=== PATIENT | male | born 1990 | race Two or more races ===

== ENCOUNTER 2016-12-02 21:20 | Emergency (ER) | payer MEDICAID ==
[~2016-12-02] VITALS: Ht 175.3 cm; Wt 88.7 kg
[2016-12-02 21:54] LABS: Basophils # (auto) 0.1 uL; Basophils % (auto) 0.7 % (0.0-2.0); Eosinophils # (auto) 0.1 uL; Eosinophils % (auto) 1.2 % (0.0-7.0); Hematocrit 48.4 % (41.0-53.0); Hemoglobin 16.3 g/dL (13.5-17.5); Lymphocytes # (auto) 2.7 uL; Lymphocytes % (auto) 27.1 % (10.0-50.0); Mean Corpuscular Hemoglobin 30.3 pg (28.0-32.0); Mean Corpuscular Hgb Conc. 33.6 g/dL (32.0-36.0); Mean Platelet Volume 7.7 fL (7.4-10.4); Monocytes # (auto) 0.9 uL; Monocytes % (auto) 8.7 % (0.0-12.0); Neutrophils # (auto) 6.3 uL; Neutrophils % (auto) 62.3 % (37.0-80.0); Platelet Count (auto) 337 10^3/uL (140-450); Red Cell Distribution Width 13.2 % (11.6-16.0)
[2016-12-02 22:03] LABS: INR 0.93 (0.9-1.15); Partial Thromboplastin Time 27.5 sec (22.64-33.71)
[2016-12-02 22:11] LABS: Albumin 3.8 g/dL (3.4-5.0); BUN/Creatinine Ratio 13.3; Bilirubin, Total 0.2 mg/dL (0.2-1.0); Calcium 8.8 mg/dL (8.5-10.1); Potassium 3.8 mmol/L (3.5-5.1)
[2016-12-02 22:12] LABS: Urine Bilirubin Negative (Negative); Urine Blood Negative /uL (Negative); Urine Color Yellow (Yellow); Urine Glucose Normal (Normal); Urine Ketone Negative (Negative); Urine Nitrite Negative (Negative); Urine RBC <1 /hpf (0 - 3); Urine Urobilinogen Normal (Negative); Urine pH 5.5 (5.0-8.0)
[2016-12-03 01:08] VITALS: BP 105/42
[2016-12-03] MEDS ORDERED: HYDROcodone-ACET 5/325MG TAB PO ONE (01:30)
== END 2016-12-03 02:12 | disposition home or self-care (01) ==
LOC: ER 21:27
DX: K58.9 Irritable bowel syndrome, unspecified (principal)
CPT/HCPCS: 36415; 74176; 80053; 81001; 82150; 83690; 85025; 85610; 85730

== ENCOUNTER 2017-03-02 19:35 | Emergency (ER) | payer MEDICAID ==
[~2017-03-02] VITALS: Ht 172.7 cm; Wt 90.7 kg
[2017-03-02 20:01] VITALS: BP 146/83
[2017-03-02] MEDS ORDERED: IBUPROFEN 800 MG TAB PO ONE (23:45)
== END 2017-03-02 23:35 | disposition home or self-care (01) ==
LOC: ER 19:41
DX: L02.413 Cutaneous abscess of right upper limb (principal)
CPT/HCPCS: 10060; 87205

== ENCOUNTER 2025-03-26 21:55 | Emergency (ER) | payer BC, MEDICAID ==
[~2025-03-26] VITALS: Ht 175.3 cm; Wt 90.0 kg
--- NOTE | 2025-03-26 22:39 | DVH ---
CLINICAL INDICATION: FALL INJURY TECHNIQUE: 4 views XY L TIB FIB XRAY Comparison: None FINDINGS/IMPRESSION: : No acute fracture. The knee and ankle joints are congruent. Anterolateral soft tissue laceration and hematoma with small radiodense foreign bodies at the level o f the proximal/mid lower leg.
[2025-03-26] MEDS ORDERED: CEPH250C PO (23:49)
[2025-03-26] MEDS ORDERED: HYDR-4902 PO (23:49)
[2025-03-26] MEDS ORDERED: IBUP-1455 PO (23:49)
--- NOTE | 2025-03-26 23:50 | ED.PDOC ---
Musculoskeletal HPI Comments This patient is a 35-year-old male who arrives to the ED today for evaluation of left bowles injuries sustained approximately 1 hour prior to arrival. Patient states he was working in his yd when he stepped into a hole and cut his bowles. Patient states he is unable to bear weight on the leg. Patient denies any fever nausea or vomiting. Patient's tetanus is up-to-date. Chief Complaint: Lower Extremity Time Seen by MD: 23:24 Reviewed Notes: Nurses Notes Allergies: Coded Allergies: NO KNOWN ALLERGIES (Unverified , 12/02/16) Information Source: Patient, Friend Mode of Arrival: Ambulatory Location: Left Extremity Location: Other (Bowles) Timing: Minutes Prehospital treatment: None Severity: Moderate Able to Move Extremity: Yes Bear Weight: Limited Pain: Moderate Hand Dominance: Right Mechanism: No Trauma Circumstances: Fall Onset of Symptoms: After Trauma Symptoms: Swelling, Pain DVT Risk Factors: NONE Past Medical History PAST MEDICAL HISTORY: Denies Surgical History: Denies all surgeries Family History Family History: Unobtainable Social History Smoker: Non-Smoker Alcohol: Denies ETOH Use Drugs: Denies Drug Use Lives In: Home Constitutional: denies: chills, diaphoresis, fatigue, fever, malaise, sweats, weakness, others EENTM: denies: blurred vision, double vision, ear bleeding, ear discharge, ear drainage, ear pain, ear ringing, eye pain, eye redness, hearing loss, mouth pain, mouth swelling, nasal discharge, nose bleeding, nose congestion, nose pain, photophobia, tearing, throat pain, throat swelling, voice changes, others Respiratory: denies: cough, hemoptysis, orthopnea, SOB at rest, shortness of breath, SOB with excertion, stridor, wheezing, others Cardiovascular: denies: chest pain, dizzy spells, diaphoresis, Dyspnea on exertion, edema, irregular heart beat, left arm pain, lightheadedness, palpitations, PND, syncope, others Gastrointestinal: denies: abdomen distended, abdominal pain, blood streaked bowels, constipated, diarrhea, dysphagia, difficulty swallowing, hematemesis, melena, nausea, poor appetite, poor fluid intake, rectal bleeding, rectal pain, vomiting, others Genitourinary: denies: burning, dysuria, flank pain, frequency, hematuria, incontinence, penile discharge, penile sore, pain, testicle pain, testicle swelling, urgency, others Neurological: denies: dizziness, fainting, headache, left sided numbness, left sided weakness, numbness, paresthesia, pre-existing deficit, right sided numbness, right sided weakness, seizure, speech problems, tingling, tremors, weakness, others Musculoskeletal: reports: others (Left bowles pain with laceration); denies: back pain, gout, joint pain, joint swelling, muscle pain, muscle stiffness, neck pain Integumetry: reports: laceration (Left bowles); denies: bruises, change in color, change in hair/nails, dryness, lesions, lumps, rash, wounds, others Allergic/Immunocompromised: denies: Difficulty Healing, Frequent Infections, Hives, Itching, others Hematologic/Lymphatic: denies: anemia, blood clots, easy bleeding, easy bruising, swollen glands, others Endocrine: denies: excessive hunger, excessive sweating, excessive thirst, excessive urination, flushing, intolerance to cold, intolerance to heat, unexplained weight gain, unexplained weight loss, others Psychiatric: denies: anxiety, bipolar disorder, depression, hopeless, panic disorder, schizophrenia, sleepless, suicidal, others Physical Exam General Appearance: Moderate Distress (Due to left bowles pain concerns.), Normal HEENT: Normal ENT Inspection, Pharynx Normal, TMs Normal Neck: Full Range of Motion, Non-Tender, Normal, Normal Inspection Respiratory: Chest Non-Tender, Lungs Clear, No Accessory Muscle Use, No Respiratory Distress, Normal Breath Sounds Cardiovascular: No Edema, No JVD, No Murmur, No Gallop, Normal Peripheral Pulses, Regular Rate/Rhythm Breast Exam: Deferred Gastrointestinal: No Organomegaly, Non Tender, No Pulsatile Mass, Normal Bowel Sounds, Soft Genitalia: Deferred Pelvic: Deferred Rectal: Deferred Extremities: Other (Central left bowles tenderness to palpation throughout with mild edema. Patient displays a 6 cm v-shaped laceration to the injury site. No crepitus noted. No tendon involvement.) Neurologic: Alert, No Motor Deficits, Normal Affect, Normal Mood, No Sensory Deficits Cerebellar Function: Normal Reflexes: Normal Skin: Dry, Normal Color, Warm Lymphatic: No Adenopathy Was a procedure done? Was a procedure done?: Yes Sedation Sedation?: No Other Procedure Notes 8 cc of 1% lidocaine was utilized for local anesthesia. Sterile field was placed. Copious irrigation performed. Nine kinsey were placed to close the patient's wound. Minimal blood loss. Patient tolerated procedure well. Clean dressing applied. Differential Diagnosis EXT Differential Diagnosis: Fracture, Sprain, Laceration, Contusion, Strain X-Ray, Labs, Meds, VS Vital Signs Date Time Temp Pulse Resp B/P (MAP) Pulse Ox O2 Delivery O2 Flow Rate FiO2 03/26/25 21:56 98.6 109 16 126/93 97 98.6 X-Ray, Labs, Meds, VS Comment All studies performed the ED were reviewed by me personally. Imaging studies of the left bowles were unremarkable for any fracture. Patient tolerated procedure well. Advised patient utilize antibiotics as directed as well as pain medication as needed. Patient should return to ED or primary care provider in 10 days for re-evaluation and probable staple removal. Time of 1ST Reevaluation: 23:47 Reevaluation 1ST: Improved Consultation: PCP Patient Education/Counseling: Diagnosis, Treatment Family Education/Counseling: Diagnosis, Treatment Sepsis Recent Procedure: No On Antibiotic Therapy: No Respiratory Rate >20: No Heart Rate >90: No Temp<36 C (96.8 F) or >38.3 C: No SBP <90 or MAP <65 mmHG: No New Acute Mental Status Change: No Is the patient on CPAP, BIPAP,: No IV fluid given: No Departure 1 Departure Time of Disposition: 23:48 Impression: Primary Impression: Contusion of leg Additional Impression: Leg laceration Disposition: 01 HOME / SELF CARE / HOMELESS Condition: Stable Additional Instructions: Advised patient utilize antibiotics as directed until completion as well as pain medication as needed. Patient should return to primary care provider for ED in 10 days for re-evaluation and probable staple removal. e-Prescriptions Hydrocodone-Acetaminophen (Hydrocodone Bitartrate/AC 5-325 mg) 1 Tab Tab 1 TAB PO Q6HP PRN, #12 TAB Prov: BETTIE CARABALLO PAC 03/26/25 Ibuprofen Micronized (Ibuprofen) 800 Mg Tab 800 MG PO Q8HP PRN, #20 TAB Prov: BETTIE CARABALLO PAC 03/26/25 Cephalexin (KEFLEX CAPSULE) 250 Mg Cp 1 CAP PO QID for 7 Days, #28 CAP Prov: BETTIE CARABALLO PAC 03/26/25 Discharged With: Self, Friend Critical Care Note Critical Care Time?: No Stability Stability form required: No Heart Score Heart Score: Heart Score Response (Comments) Value History N/A 0 EKG N/A 0 Age N/A 0 Risk Factors N/A 0 Troponin N/A 0 Total 0 BETTIE CARABALLO PAC Mar 26, 2025 23:50
[2025-03-27 04:14] VITALS: BP 127/86; PULSE 90; RESP 18; TEMP 98.3; O2SAT 97
[2025-03-27] MEDS: HYDROcodone-ACET 10/325MG TAB PO ONE (04:21)
== END 2025-03-27 04:56 | disposition home or self-care (01) ==
LOC: ER 21:55
DX: S81.812A Laceration without foreign body, left lower leg, initial encounter (principal); S80.12XA Contusion of left lower leg, initial encounter; W45.8XXA Other foreign body or object entering through skin, initial encounter; Y93.89 Activity, other specified; Y92.096 Garden or yard of other non-institutional residence as the place of occurrence of the external cause; Y99.8 Other external cause status
CPT/HCPCS: 12002; 73590; 99283; J2003

== ENCOUNTER 2025-04-05 19:45 | Emergency (ER) | payer MEDICAID ==
[~2025-04-05] VITALS: Ht 175.3 cm; Wt 91.1 kg
[2025-04-05 19:45] VITALS: BP 132/104; PULSE 109; RESP 16; TEMP 98.7; O2SAT 97
[~2025-04-05 19:45] MED LIST: CEPH250C PO; HYDR-4902 PO; IBUP-1455 PO
--- NOTE | 2025-04-05 21:11 | ED.PDOC ---
History of Present Illness(SKN HPI Comments 35-year-old male presents to ER for staple removal. Patient states he was seen and evaluated in ER here 10 days ago and had 9 kinsey placed to left leg at that time and presents to ER today for staple removal. Reports the wound appeared to heal well without any complication. Patient presents to ER [facility], in no distress. Denies fever, skin drainage or any further symptoms/complaints Chief Complaint: Suture Removal Time Seen by MD: 20:20 Primary Care Provider: UNKNOWN History of Present Illness: Nurses Notes, Medications, Allergies Allergies: Coded Allergies: NO KNOWN ALLERGIES (Unverified , 12/02/16) Home Meds Active Scripts Hydrocodone-Acetaminophen (Hydrocodone Bitartrate/AC 5-325 mg) 1 Tab Tab, 1 TAB PO Q6HP PRN, #12 TAB Prov:BETTIE CARABALLO PAC 03/26/25 Ibuprofen Micronized (Ibuprofen) 800 Mg Tab, 800 MG PO Q8HP PRN, #20 TAB Prov:BETTIE CARABALLO PAC 03/26/25 Cephalexin (KEFLEX CAPSULE) 250 Mg Cp, 1 CAP PO QID for 7 Days, #28 CAP Prov:BETTIE CARABALLO PAC 03/26/25 Information Source: Patient Mode of Arrival: Ambulatory Past Medical History PAST MEDICAL HISTORY: Denies Surgical History: Denies all surgeries Family History Family History: Unknown Social History Smoker: Non-Smoker Alcohol: Denies ETOH Use Drugs: Denies Drug Use Lives In: Home Constitutional: denies: chills, diaphoresis, fatigue, fever, malaise, sweats, weakness, others EENTM: denies: blurred vision, double vision, ear bleeding, ear discharge, ear drainage, ear pain, ear ringing, eye pain, eye redness, hearing loss, mouth pain, mouth swelling, nasal discharge, nose bleeding, nose congestion, nose pain, photophobia, tearing, throat pain, throat swelling, voice changes, others Respiratory: denies: cough, hemoptysis, orthopnea, SOB at rest, shortness of breath, SOB with excertion, stridor, wheezing, others Cardiovascular: denies: chest pain, dizzy spells, diaphoresis, Dyspnea on exertion, edema, irregular heart beat, left arm pain, lightheadedness, palpitations, PND, syncope, others Gastrointestinal: denies: abdomen distended, abdominal pain, blood streaked bowels, constipated, diarrhea, dysphagia, difficulty swallowing, hematemesis, melena, nausea, poor appetite, poor fluid intake, rectal bleeding, rectal pain, vomiting, others Genitourinary: denies: burning, dysuria, flank pain, frequency, hematuria, incontinence, penile discharge, penile sore, pain, testicle pain, testicle swelling, urgency, others Neurological: denies: dizziness, fainting, headache, left sided numbness, left sided weakness, numbness, paresthesia, pre-existing deficit, right sided numbness, right sided weakness, seizure, speech problems, tingling, tremors, weakness, others Musculoskeletal: denies: back pain, gout, joint pain, joint swelling, muscle pain, muscle stiffness, neck pain, others Integumetry: reports: others (As stated in HPI) Allergic/Immunocompromised: denies: Difficulty Healing, Frequent Infections, Hives, Itching, others Hematologic/Lymphatic: denies: anemia, blood clots, easy bleeding, easy bruising, swollen glands, others Endocrine: denies: excessive hunger, excessive sweating, excessive thirst, excessive urination, flushing, intolerance to cold, intolerance to heat, unexplained weight gain, unexplained weight loss, others Psychiatric: denies: anxiety, bipolar disorder, depression, hopeless, panic disorder, schizophrenia, sleepless, suicidal, others Physical Exam General Appearance: No Apparent Distress HEENT: PERRL/EOMI Neck: Full Range of Motion, Non-Tender, Normal Respiratory: Chest Non-Tender, Lungs Clear, No Accessory Muscle Use, No Respiratory Distress, Normal Breath Sounds Cardiovascular: No Murmur, No Gallop, Regular Rate/Rhythm Breast Exam: Deferred Gastrointestinal: NOT DONE Genitalia: Deferred Pelvic: Deferred Rectal: Deferred Extremities: No calf tenderness, Normal capillary refill, Normal range of motion Neurologic: Alert, crimping press operator II-XII nml as Tested, No Motor Deficits, Normal Affect, Normal Mood, No Sensory Deficits Cerebellar Function: Normal Reflexes: Normal Skin: Dry, Normal Color, Warm, Other (Nine kinsey in place to healed wound on left lower leg. No signs of infection noted. Gait intact without abnormality) Lymphatic: No Adenopathy Was a procedure done? Was a procedure done?: No Sedation Sedation?: No Differential Diagnosis (INTG) Differential Diagnosis: Abscess Differential Diagnosis: Cellulitis, Puncture Wound, Retained Foreign Body X-Ray, Labs, Meds, VS Vital Signs Date Time Temp Pulse Resp B/P (MAP) Pulse Ox O2 Delivery O2 Flow Rate FiO2 04/05/25 19:45 98.7 109 16 132/104 97 98.7 All kinsey removed at bedside without complication Previous chart visit reviewed Advised to follow up with PCP in 1-2 days Patient verbalized understanding and agreeable with current plan of care Advised to return to ER immediately if symptoms worsen Time of 1ST Reevaluation: 20:54 Reevaluation 1ST: N/A Patient Education/Counseling: Diagnosis, Treatment, Prognosis, Need For Follow Up Family Education/Counseling: No Family Present SEPSIS Sepsis Screen Date sepsis recognized/suspect: Apr 05, 2025 Time Sepsis recognized/suspect: 1944 Recent Procedure: No On Antibiotic Therapy: No Respiratory Rate >20: No Heart Rate >90: No Temp<36 C (96.8 F) or >38.3 C: No SBP <90 or MAP <65 mmHG: No New Acute Mental Status Change: No Is the patient on CPAP, BIPAP,: No Vital Signs Date Time Temp Pulse Resp B/P (MAP) Pulse Ox O2 Delivery O2 Flow Rate FiO2 04/05/25 19:45 98.7 109 16 132/104 97 98.7 Departure 1 Departure Time of Disposition: 21:10 Impression: Primary Impression: Leg laceration Qualified Codes: S81.812D - Laceration without foreign body, left lower leg, subsequent encounter Additional Impression: Encounter for staple removal Disposition: 01 HOME / SELF CARE / HOMELESS Condition: Stable Discharged With: Self Critical Care Note Critical Care Time?: No Stability Stability form required: No Heart Score Heart Score: Heart Score Response (Comments) Value History N/A 0 EKG N/A 0 Age N/A 0 Risk Factors N/A 0 Troponin N/A 0 Total 0 TOMY HOLDEN Apr 05, 2025 21:10
== END 2025-04-05 21:19 | disposition home or self-care (01) ==
LOC: ER 19:45
DX: S81.812D Laceration without foreign body, left lower leg, subsequent encounter (principal); Z48.02 Encounter for removal of sutures; Z79.899 Other long term (current) drug therapy; X58.XXXD Exposure to other specified factors, subsequent encounter